=== PATIENT | male | born 1975 | race Caucasian/White ===

== ENCOUNTER 2017-09-26 10:21 | Emergency (ER) | payer OTHER | END 2017-09-26 12:27 | disposition home or self-care (01) | LOC: FTE 10:21 | DX: T17.208A Unspecified foreign body in pharynx causing other injury, initial encounter (principal); X58.XXXA Exposure to other specified factors, initial encounter; Y92.9 Unspecified place or not applicable | CPT/HCPCS: 70360; 99283-25 ==